=== PATIENT | female | born 1955 | race Caucasian/White ===

== ENCOUNTER 2016-10-29 15:25 | Emergency (ER) | payer MEDICAID ==
[2016-10-29 15:26] VITALS: BMI 64.5
[2016-10-29 15:31] VITALS: RESP 20; TEMP 97.6
[2016-10-29] MEDS ORDERED: Naproxen 550 mg Tab PO STA (16:35)
--- NOTE | 2016-10-29 16:38 | C.PDOC ---
History Of Present Illness Patient presents to ED c/o decreased sensation/tinging on right anterior leg/ thigh since waking up this morning. She admits she sometimes suffers from low back pain that radiates down her legs, but denies current pain. She also denies rash, feve, fals/injuries, abdominal pain. Time Seen by Provider: 10/29/16 15:55 Chief Complaint (Nursing): Lower Extremity Problem/Injury History Per: Patient History/Exam Limitations: no limitations Onset/Duration Of Symptoms: Hrs Current Symptoms Are (Timing): Still Present Severity: Mild Past Medical History Reviewed: Historical Data, Nursing Documentation, Vital Signs Vital Signs: Last Vital Signs Temp 97.6 F 10/29/16 15:29 Pulse 63 10/29/16 16:44 Resp 20 10/29/16 16:44 BP 139/86 10/29/16 16:44 Pulse Ox 97 10/29/16 16:44 - Medical History PMH: Anxiety, CVA, Depression, HTN, Hypercholesterolemia Family History: States: No Known Family Hx, Unknown Family Hx - Social History Hx Alcohol Use: No Hx Substance Use: No - Immunization History Hx Tetanus Toxoid Vaccination: Yes Hx Influenza Vaccination: Yes Hx Pneumococcal Vaccination: Yes Review Of Systems Except As Marked, All Systems Reviewed And Found Negative. Constitutional: Negative for: Fever, Chills Cardiovascular: Negative for: Chest Pain, Palpitations Respiratory: Negative for: Cough, Shortness of Breath Musculoskeletal: Negative for: Leg Pain Skin: Negative for: Rash Neurological: Positive for: Numbness (right thigh ) Physical Exam - Physical Exam Appears: Well, Non-toxic, No Acute Distress Skin: Warm, Dry, No Rash Oral Mucosa: Moist Cardiovascular: Rhythm Regular Respiratory: Normal Breath Sounds, No Rales, No Rhonchi, No Wheezing Gastrointestinal/Abdominal: Normal Exam, Bowel Sounds, Soft, No Tenderness Back: Normal Inspection, No CVA Tenderness, No Vertebral Tenderness, No Paraspinal Tenderness Extremity: Normal ROM, No Tenderness, No Pedal Edema, No Calf Tenderness, No Deformity, Other (subjectively decreased sensation right anterior thigh - no rash/erythema/swelling) Extremity: Bilateral: Atraumatic, Normal Color And Temperature, Normal ROM Pulses: Left Dorsalis Pedis: Normal, Right Dorsalis Pedis: Normal Neurological/Psych: Oriented x3, Normal Motor Gait: Steady ED Course And Treatment O2 Sat by Pulse Oximetry: 100 (RA) Pulse Ox Interpretation: Normal Progress Note: Patient given PO naprosyn and presnisone in ED for radicular symptoms/sciatica. She was given Rx for same, and instructed to follow up with her PMD in 1-2 days for further evaluation. She is able to ambulate normally in the ED. Patient understands that if symptoms persist, she may need outpatient MRI. Patient instructed to return to ED if symptoms worsen. Reassessment Condition: Improved Disposition Counseled Patient/Family Regarding: Diagnosis, Need For Followup, Rx Given - Disposition Referrals: Tahir Ureña MD [Staff Provider] - Disposition: HOME/ ROUTINE Disposition Time: 16:40 Condition: STABLE Additional Instructions: SEGUIMIENTO con rosenthal mdico en 1-2 osuna Utilizar los medicamentos segn las indicaciones VOLVER A nicolasa de emergencias si sergo sntomas empeoran Prescriptions: Naproxen [Naprosyn Tab] 375 mg PO BID PRN #20 tab PRN Reason: pain predniSONE [predniSONE Tab] 40 mg PO DAILY #6 tab Instructions: Paresthesia (ED), Lumbar Radiculopathy (ED) Print Language: UKRAINIAN - POA Present On Arrival: None - Clinical Impression Clinical Impression: Leg paresthesia, Sciatica
[2016-10-29] MEDS ORDERED: Naproxen 550 mg Tab PO ONE (16:40)
[2016-10-29 16:45] VITALS: BP 139/86; PULSE 63
[2016-10-29 18:08] VITALS: O2SAT 100
== END 2016-10-29 16:45 | disposition home or self-care (01) ==
LOC: C.ER 15:25
DX: M54.31 Sciatica, right side (principal); R20.2 Paresthesia of skin